=== PATIENT | male | born 1970 | race Caucasian/White ===

== ENCOUNTER 2019-06-16 14:50 | Inpatient (IN) ==
[2019-06-16] MEDS ORDERED: ASPIRIN PO ONE (15:05)
[2019-06-16 15:32] LABS: BASO# 0.02 X1000 (0.0-0.2); BASO% 0.2 % (0.0-0.8); EOS# 0.28 X1000 (0.0-0.7); HEMATOCRIT 45.4 % (42.0-52.0); HEMOGLOBIN 14.7 g/dL (14.0-18.0); IMM GRAN# 0.02 X1000 (0.0-0.04); IMM GRAN% 0.2 % (0.0-0.5); LYMPH# 1.61 X1000 (1.2-3.4); LYMPH% 17.2 % (20.5-51.1); MCH 27.8 PG (27-31); MCHC 32.4 g/dL (33-37); MONO# 0.76 X1000 (0.11-0.59); MONO% 8.1 % (1.7-9.3); MPV 9.6 FL (7.4-10.4); NEUT# 6.69 X1000 (1.4-6.5); NEUT% 71.3 % (42.2-75.2); PLT 185 X1000 (130-400); RBC 5.28 XMIL (4.7-6.1); RDW 15.2 % (11.5-14.5); WBC 9.38 X1000 (4.8-10.8)
--- NOTE | 2019-06-16 15:44 | Diag Imaging Result Doc PS360 ---
CHEST-2 VIEWS - 06/16/2019 INDICATION: chest pain COMPARISON: 08/08/2016 FINDINGS: The lungs are normally expanded and clear. Heart size and mediastinal contours are normal. No pneumothorax or pleural effusion. Stable calcified granulomas in the left lower lobe and left hilum. Stable advanced degenerative osteophytes throughout the thoracic spine. IMPRESSION: Negative exam. Electronically signed by Zoran Vicente 06/16/2019 3:42 PM
[2019-06-16 15:56] LABS: AGAP 11; ALBUMIN 4.1 g/dL (3.5-5.0); ALKALINE PHOSPHATASE 76 U/L (32-122); BUN 15 mg/dL (8-22); CHLORIDE 96 mmol/L (98-107); CK PROFILE 114 U/L (24-204); COSMO 277; ESTIMATED GFR > 60; GLUCOSE 78 mg/dL (70-104); GOT 16 U/L (10-34); GPT 13 U/L (10-44); LIPASE 11 U/L (13-60); POTASSIUM 4.1 mmol/L (3.5-5.1); SODIUM 139 mmol/L (136-145); TCO2 32 mmol/L (25-35); TOTAL PROTEIN 7.1 g/dL (6.3-8.3)
--- NOTE | 2019-06-16 17:13 | EKG Report ---
Test Performed on : 06/16/2019 2:48:32 PM Test Reason : ER Blood Pressure : / mmHG Vent. Rate : 067 BPM Atrial Rate : 067 BPM P-R Int : 188 ms QRS Dur : 116 ms QT Int : 432 ms P-R-T Axes : 053 070 047 degrees QTc Int : 456 ms Normal sinus rhythm. Normal ECG When compared with ECG of 29-JUL-2012 14:19, Previous ECG has undetermined rhythm, needs review Unconfirmed Result
[2019-06-16] MEDS ORDERED: ZOFRAN IV PRN (17:45)
[2019-06-16] MEDS ORDERED: TYLENOL PO PRN (17:45)
[2019-06-16 18:29] LABS: BE 6.3 mmoll (-3.0-3.0); BLOOD TYPE ARTERIAL; HCO3-(ACT) 29.6 mmoll (20.0-26.0); METHB 1.1 % (0.0-1.5); O2(CT) 19.2 mL/dL (15.0-23.0); O2HB 90.6 % (95.0-99.0); PO2(98.6) 65 mmHg (60-100); SAMPLE BLOOD; SAO2 95.1 % (95.0-100.0); THB 15.1 g/dL (11.5-17.4); pH(98.6) 7.35 (7.35-7.45)
[2019-06-16 18:32] LABS: ALLEN TEST YES; MODALITY ROOM AIR; PCO2(98.6) 62 mmHg (35-45)
[2019-06-16] MEDS ORDERED: MORPHINE IV PRN (18:40)
[2019-06-16] MEDS ORDERED: NITROGLYCERIN SL PRN (18:40)
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
--- NOTE | 2019-06-17 06:29 | EKG Report ---
Test Performed on : 06/17/2019 06:14:01 AM Test Reason : cp Blood Pressure : / mmHG Vent. Rate : 064 BPM Atrial Rate : 064 BPM P-R Int : 174 ms QRS Dur : 118 ms QT Int : 444 ms P-R-T Axes : 013 060 046 degrees QTc Int : 458 ms Normal sinus rhythm. Incomplete right bundle branch block Borderline ECG When compared with ECG of 16-JUN-2019 14:48, (Unconfirmed) No significant change was found Confirmed by Tadeo Gee MD ([id number]) on 06/19/2019 7:34:10 AM
[2019-06-17 07:21] LABS: BASO# 0.02 X1000 (0.0-0.2); BASO% 0.2 % (0.0-0.8); EOS# 0.39 X1000 (0.0-0.7); EOS% 4.6 % (0.0-10.0); HEMATOCRIT 45.9 % (42.0-52.0); HEMOGLOBIN 14.4 g/dL (14.0-18.0); IMM GRAN# 0.01 X1000 (0.0-0.04); IMM GRAN% 0.1 % (0.0-0.5); LYMPH# 1.61 X1000 (1.2-3.4); LYMPH% 19.1 % (20.5-51.1); MCH 27.9 PG (27-31); MCHC 31.4 g/dL (33-37); MCV 88.8 FL (81-99); MONO# 0.69 X1000 (0.11-0.59); MONO% 8.2 % (1.7-9.3); MPV 10.2 FL (7.4-10.4); NEUT# 5.72 X1000 (1.4-6.5); NEUT% 67.8 % (42.2-75.2); PLT 190 X1000 (130-400); RBC 5.17 XMIL (4.7-6.1); RDW 15.5 % (11.5-14.5); WBC 8.44 X1000 (4.8-10.8)
[2019-06-17 07:52] LABS: AGAP 6; ALBUMIN 3.4 g/dL (3.5-5.0); ALKALINE PHOSPHATASE 70 U/L (32-122); BUN 17 mg/dL (8-22); CALCIUM 8.5 mg/dL (8.8-10.2); CHLORIDE 99 mmol/L (98-107); COSMO 277; CREATININE 0.7 mg/dL (0.7-1.2); ESTIMATED GFR > 60; GLUCOSE 94 mg/dL (70-104); GOT 14 U/L (10-34); GPT 11 U/L (10-44); POTASSIUM 4.6 mmol/L (3.5-5.1); SODIUM 138 mmol/L (136-145); TCO2 33 mmol/L (25-35); TOTAL PROTEIN 6.7 g/dL (6.3-8.3)
[2019-06-17 07:57] LABS: CHOLESTEROL 138 mg/dL (0-200); HDL 44 mg/dL (35-55); LDL 52 mg/dL; TRIGLYCERIDES 212 mg/dL (39-160); VLDL 42 mg/dL
[2019-06-17] MEDS ORDERED: ASPIRIN EC PO SCH (09:00)
--- NOTE | 2019-06-17 17:16 | CARDIOLOGY CONSULTATION ---
DATE: 06/17/2019 CHIEF COMPLAINT: Chest pain. HISTORY OF PRESENT ILLNESS: Mr. Scherer is a 49-year-old male with a history of hypertension, tobacco use, who presents for around 1 to 2 weeks of a pressure-like discomfort in his chest. At times, it will radiate up to the left shoulder as well as the neck; however, at times, he seems to have these pains without the chest pain. The pain is occasionally exertional. He is a difficult historian. It seems to at times gets better with aspirin. He denies any overt diaphoresis. He at times has smoked quite heavily, up to 2 packs per day. PAST MEDICAL HISTORY: Significant for hypertension. SOCIAL HISTORY: He smokes around 2 packs a day. 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 FAMILY HISTORY: Coronary disease. REVIEW OF SYSTEMS: A 10 system review of systems is negative except for those things mentioned in the HPI. PHYSICAL EXAMINATION: Afebrile. Heart rate 67, blood pressure 141/92. Generally, he is in no acute distress.HEENT: Oropharynx is moist with normal dentition. Eye examination shows pink conjunctivae and white sclerae. His neck examination shows no obvious thyromegaly or thyroid tenderness. Cardiovascularly, he is in a regular rate and rhythm. He has no obvious murmurs. He has distant heart sounds. No lower extremity edema. His chest exam sounds clear bilaterally. He has no increased work of breathing. His abdomen is soft, nontender, nondistended. No obvious organomegaly. Skin exam is warm and dry throughout without any rashes. Neurologically, he is moving all extremities well. He has no lateralizing deficits. PERTINENT DATA: His EKG yesterday at 1448 shows sinus rhythm, no signs of ischemic changes. His subsequent EKG occurring on the at 6:14 shows sinus rhythm, no signs of ischemic changes. He had a chest x-ray that shows no obvious abnormalities. His lab data demonstrates a white count 8.4, hematocrit 45, platelet count 190,000. His sodium is 138, potassium 4.6 BUN 17, creatinine 0.7. His LDL was 52, HDL 44. He has had negative cardiac enzymes. ASSESSMENT: Mr. Scherer is a 49-year-old gentleman who presents with exertional chest discomfort with risk factors. PLAN: Patient is quite obese with a BMI of around 70; he weighs 397 pounds and is 5 feet 3 inches. He does not seem a feasible candidate for any sort of noninvasive testing. We will try to proceed with a cardiac catheterization in the morning for a full delineation of his coronary arteries. Risks, benefits and alternatives to the procedure have been discussed with the patient and he agrees to proceed. cc: MD Rodney Johnson MD MTDD
--- NOTE | 2019-06-17 18:44 | PROGRESS NOTE ---
DATE: 06/17/2019 SUBJECTIVE: Patient has no complaints. He is chest pain-free at this point. OBJECTIVE: Vital signs: Blood pressure is 141/92, heart rate 67, respiratory rate 22, temperature 98.4 degrees. Cardiovascular: Regular rate and rhythm. Pulmonary: Bilateral breath sounds. Clear auscultation. GI: Soft, nontender, nondistended. Bowel sounds are positive. LABORATORY DATA: White count is 8, hemoglobin and hematocrit 14 and 45. Troponins have been negative. His triglycerides are mildly elevated at 212. PROBLEM LIST: 1. Chest pain, which is somewhat atypical, but there is a concern over possible unstable angina due to his weight. Noninvasive imaging may not be completely available. So, we will perform a cardiac catheterization per Dr. Lauri Manrique's recommendations. Hopefully, they are arranging to transfer him to [facility] to get that evaluated. 2. Atypical chest pain. I am going to analyze the right upper quadrant just because of his obesity. 3. Hypertriglyceridemia. We will also start him on Tricor for and follow closely. cc: Rodney Waldrop MD
[2019-06-17] MEDS ORDERED: NITROGLYCERIN SL PRN (20:16)
[2019-06-17] MEDS ORDERED: TYLENOL PO PRN (20:18)
[2019-06-17] MEDS ORDERED: ZOFRAN IV PRN (20:19)
--- NOTE | 2019-06-17 22:54 | ECHO REPORT ---
ORDER DATE: 06/17/2019 MEASUREMENTS: Septal thickness 1.0, left ventricular internal diameter diastole 5.7, posterior wall thickness 1.0, aortic root 3.8, left atrium 3.8 SUMMARY: 1. Technically difficult study due to limited acoustic window quality. 2. Aortic valve is without evidence of structural abnormality and appears to open adequately on 2- dimensional images. Peak gradient across aortic valve is 10 to 15 mmHg. Mitral and tricuspid valves are without evidence of structural abnormality. While pulmonic valves all demonstrated. There is trace tricuspid regurgitation. The aortic root is borderline enlarged. 3. Normal left ventricular dimensions suggested. Estimated left ejection fraction appears to be at least 60%. No obvious wall motion abnormality can be appreciated. Left atrium is normal in size. The right ventricle appears mild to moderately enlarged with reduced right ventricular systolic function. Mild right atrial enlargement also demonstrated. 4. No pericardial effusion. 5. Appearance of inferior vena cava suggests borderline elevated central venous pressure. CONCLUSION: 1. Technically difficult study. 2. No significant valvular abnormality appreciated. 3. Normal left ventricular systolic function demonstrated without obvious wall motion abnormality. 4. Right-sided cardiac chamber enlargement with reduced right ventricular systolic function suggested. cc: MD Rodney Newton MD
[2019-06-18] MEDS ORDERED: NS 1,000 ML IV ONE
[2019-06-18 05:38] LABS: INR 0.84; PROTIME 12.2 Seconds (11.0-16.0)
[2019-06-18 05:49] LABS: BASO# 0.02 X1000 (0.0-0.2); BASO% 0.2 % (0.0-0.8); EOS# 0.37 X1000 (0.0-0.7); EOS% 4.6 % (0.0-10.0); HEMATOCRIT 45.7 % (42.0-52.0); HEMOGLOBIN 14.8 g/dL (14.0-18.0); IMM GRAN# 0.02 X1000 (0.0-0.04); IMM GRAN% 0.2 % (0.0-0.5); LYMPH# 1.75 X1000 (1.2-3.4); LYMPH% 21.8 % (20.5-51.1); MCH 28.6 PG (27-31); MCHC 32.4 g/dL (33-37); MCV 88.2 FL (81-99); MONO# 0.68 X1000 (0.11-0.59); MONO% 8.5 % (1.7-9.3); NEUT# 5.18 X1000 (1.4-6.5); NEUT% 64.7 % (42.2-75.2); PLT 122 X1000 (130-400); RBC 5.18 XMIL (4.7-6.1); RDW 15.5 % (11.5-14.5); WBC 8.02 X1000 (4.8-10.8)
[2019-06-18 05:53] LABS: AGAP 8; BUN 18 mg/dL (8-22); CALCIUM 8.5 mg/dL (8.8-10.2); CHLORIDE 99 mmol/L (98-107); COSMO 278; CREATININE 0.8 mg/dL (0.7-1.2); ESTIMATED GFR > 60; GLUCOSE 98 mg/dL (70-104); POTASSIUM 4.3 mmol/L (3.5-5.1); SODIUM 138 mmol/L (136-145); TCO2 31 mmol/L (25-35)
--- NOTE | 2019-06-18 07:17 | EKG Report ---
Test Performed on : 06/18/2019 07:02:40 AM Test Reason : chest pain Blood Pressure : / mmHG Vent. Rate : 078 BPM Atrial Rate : 078 BPM P-R Int : 226 ms QRS Dur : 116 ms QT Int : 428 ms P-R-T Axes : 063 079 043 degrees QTc Int : 487 ms Sinus rhythm. with 1st degree AV block. Incomplete right bundle branch block Possible Anterior infarct , age undetermined Abnormal ECG When compared with ECG of 17-JUN-2019 06:14, (Unconfirmed) [place] interval has increased Unconfirmed Result
--- NOTE | 2019-06-18 08:46 | Diag Imaging Result Doc PS360 ---
EXAM: US GB < RUQ (LIMITED) INDICATION: elevated liver enzymes COMPARISON: None. FINDINGS: The gallbladder appears normal with no stones, wall thickening, or pericholecystic fluid. The common bile duct is normal in diameter. Sonographic Brasher's sign was reported to be negative. The liver is grossly unremarkable. Portal venous flow is hepatopetal. The pancreas is largely obscured by bowel gas. The aorta is also obscured. The IVC is grossly unremarkable. The right kidney is grossly unremarkable. IMPRESSION: Essentially unremarkable right upper quadrant abdominal ultrasound. Electronically signed by Sha Jorge 06/18/2019 8:45 AM
[2019-06-18] MEDS ORDERED: ASPIRIN PO SCH (09:00)
[2019-06-18] MEDS ORDERED: TRICOR PO SCH ×2 (09:00)
[2019-06-18] MEDS ORDERED: SUBOXONE 8 MG/2 MG SL SCH (09:00)
[2019-06-18] MEDS ORDERED: HYDROCHLOROTHIAZIDE PO SCH (09:00)
[2019-06-18] MEDS ORDERED: ASPIRIN EC PO SCH (09:00)
[2019-06-18] MEDS ORDERED: HEPARIN 1000 UNITS/NS 2,000 UNIT/1,000 ML IV.SOLN ONE (11:55)
[2019-06-18] MEDS ORDERED: CLAVE TWINSITE 32 IN 11959 ONE (12:23)
[2019-06-18] MEDS ORDERED: DILAUDID ONE ×2 (12:29→12:57)
[2019-06-18] MEDS ORDERED: VERSED ONE (12:29)
--- NOTE | 2019-06-18 13:42 | CARDIAC CATH REPORT ---
PROCEDURE NAME: - INDICATION: Patient with chest pain concerning for possible unstable angina. PROCEDURES PERFORMED: 1. Left heart catheterization. 2. Selective coronary angiography. 3. Left ventriculogram. PROCEDURE IN DETAIL: Mr. Scherer is brought to the catheterization laboratory in a fasting state. Informed consent was obtained. Prepped in usual fashion. He was anesthetized over the right radial artery after Demian's test proved adequate. A 5-Romansh sheath was placed via true Seldinger technique. Radial cocktail was administered. Catheters were introduced and hemodynamic measurements made in the ascending thoracic aorta. Coronary angiography was performed in multiple views using JL3.5 and JR4 diagnostic catheters. Left heart catheterization was performed, and left ventriculogram was performed using the JR4. At the conclusion of the procedure, all sheaths and catheters were removed. TR band was left inflated at 12 mL of air. Good capillary refill. Good hemostasis. No apparent complications. Total of 65 mL of IV contrast and 5-10 mL of blood loss. FINDINGS: 1. The left main appears normal and originates from the left coronary cusp. 2. Left anterior descending and circumflex vessels are large and originate from the left main. There are no flow-limiting lesions. 3. The right coronary appears angiographically normal and originates from the right coronary cusp. He experienced some radial artery spasm during the course of injection of the right coronary, and we had difficulty manipulating the catheter for the second shot, but again appeared angiographically normal during his initial shots. 4. The left ventriculogram was complicated by ectopy, but ejection fraction was 55%. No obvious wall motion abnormalities. 5. Aortic blood pressure 166/96 with a mean of 126. Left ventricular pressure 155/14 with an LVEDP of 22. ASSESSMENT: Mr. Scherer is a 49-year-old gentleman who presents with complaints of chest discomfort, some with exertion. PLAN: He has an elevated LVEDP with normal coronaries. At this point, I would recommend changing his diuretic to Lasix 20 mg daily. I would recommend the patient proceeding with a sleep study as well as an outpatient. From my standpoint, he can be discharged home after the usual postprocedure convalescence. cc: MD Obie Johnson MD
--- NOTE | 2019-06-18 15:13 | DISCHARGE SUMMARY ---
ADMISSION DATE: 06/16/2019 DISCHARGE DATE: 06/18/2019 DISCHARGE DIAGNOSES: 1. Hypertension. 2. Possible obesity hypoventilation syndrome. Sleep study is recommended. 3. No coronary artery disease. CONSULTATIONS: Dr. Lauri Manrique from Cardiology. PROCEDURES: Chest x-ray done on admission was negative. Echocardiogram: Technically difficult exam. No significant valvular abnormality appreciated. Normal left ventricular systolic function without obvious wall motion abnormality. Right-sided cardiac chamber enlargement with reduced right ventricular systolic function suggested. Cardiac catheterization show elevated LVEDP with arteries grossly normal. Abdominal ultrasound showed essentially unremarkable right upper quadrant abdominal ultrasound. HOSPITAL COURSE: In brief, this is a 49-year-old morbidly obese male who presented to the emergency department complaining of several weeks of chest pain on and off so that is why he was admitted. He had echocardiogram and abdominal ultrasound as above. To help with better visualization of the heart, we decided to do a Lexiscan but because that was technically difficult, education assistant decided to do a left heart catheterization with results as above. Patient is doing fine. I think he may have some sleep apnea so he is being referred to Dr. Mcmullen from Pulmonary to have a sleep study done. We are going to make a change in his treatment to start Lasix and stop hydrochlorothiazide. I think this patient can be discharged home in stable condition. DISCHARGE PHYSICAL EXAMINATION: Vitals: Temperature 97.8 degrees, heart rate 56, respiratory rate 20, blood pressure 142/67, O2 saturation 98% on room air. General Examination: This is a morbidly obese 49-year-old male, lying in bed, in no acute distress. Cardiovascular Exam: S1, S2 heard. No murmurs, gallops, or rubs. Regular rate and rhythm. Respiratory Exam: Clear bilaterally to auscultation. No work of breathing or using accessory muscles. Abdomen: Soft, nontender to palpation. Bowel sounds present. No organomegaly. Extremities: No clubbing, cyanosis, or edema. Peripheral pulses present in both legs. Neurological Exam: The patient alert, oriented x3. Moves 4 extremities. DISCHARGE DISPOSITION: Home to self-care. FOLLOW-UP: Follow up with Dr. Mcmullen in a week or 2. DISCHARGE MEDICATIONS: 1. Tricor 40 mg 1 tablet p.o. daily. 2. Furosemide 20 mg 1 tablet p.o. daily. 3. Aspirin 1 tablet p.o. daily. 4. Suboxone 1 tablet p.o. b.i.d. COORDINATION TIME: Time discharging this patient is 33 minutes. cc: Obie Hoffman MD
[2019-06-18 15:46] VITALS: BP 152/80
[2019-06-19] MEDS ORDERED: LASIX PO SCH (09:00)
== END 2019-06-18 16:30 | disposition home or self-care (01) | DRG 287 ==
LOC: P.ED 14:50 → P.MEDSURG 14:50 → OBSVTOIN 17:17 → SUATTDRO 17:17 → 3S 06-17 20:12
PROVIDERS: ADMIT Internal Medicine; ATTEND Internal Medicine
CPT/HCPCS: 71020; 71046; 76705; 80048; 80053; 80061; 82550; 82805; 83690; 83735; 84484; 85025; 85610; 93005; 93010; 93306; 93458; A9270; C8929; J1170; J1644; J2250; J7030; Q9957; Q9967

== ENCOUNTER 2019-09-05 23:30 | Inpatient (IN) ==
[2019-09-06] MEDS ORDERED: TYLENOL PO PRN (02:04)
[2019-09-06] MEDS ORDERED: ZOFRAN IV PRN (02:04)
[2019-09-06 02:27] LABS: BASO# 0.03 X1000 (0.0-0.2); BASO% 0.3 % (0.0-0.8); EOS# 0.36 X1000 (0.0-0.7); EOS% 3.3 % (0.0-10.0); HEMATOCRIT 42.7 % (42.0-52.0); HEMOGLOBIN 13.7 g/dL (14.0-18.0); IMM GRAN# 0.03 X1000 (0.0-0.04); IMM GRAN% 0.3 % (0.0-0.5); LYMPH# 1.91 X1000 (1.2-3.4); LYMPH% 17.5 % (20.5-51.1); MCHC 32.1 g/dL (33-37); MCV 90.5 FL (81-99); MONO% 7.3 % (1.7-9.3); MPV 9.5 FL (7.4-10.4); NEUT# 7.79 X1000 (1.4-6.5); NEUT% 71.3 % (42.2-75.2); PLT 205 X1000 (130-400); RBC 4.72 XMIL (4.7-6.1); RDW 14.1 % (11.5-14.5); WBC 10.92 X1000 (4.8-10.8)
[2019-09-06 02:33] LABS: INR 0.96; PROTIME 12.9 Seconds (11.0-16.0)
[2019-09-06 02:52] LABS: AGAP 10; ALB/GLOB RATIO 1.2; ALBUMIN 3.8 g/dL (3.5-5.0); ALKALINE PHOSPHATASE 65 U/L (32-122); BUN 23 mg/dL (8-22); CALCIUM 8.6 mg/dL (8.8-10.2); CHLORIDE 100 mmol/L (98-107); CK PROFILE 71 U/L (24-204); COSMO 285; CREATININE 0.7 mg/dL (0.7-1.2); ESTIMATED GFR > 60; GLUCOSE 96 mg/dL (70-104); GOT 13 U/L (10-34); GPT 11 U/L (10-44); MAGNESIUM 1.9 mg/dL (1.5-2.7); POTASSIUM 4.1 mmol/L (3.5-5.1); SODIUM 141 mmol/L (136-145); TCO2 31 mmol/L (25-35); TOTAL BILIRUBIN 0.17 mg/dL (0.20-1.00); TOTAL PROTEIN 6.9 g/dL (6.3-8.3)
[2019-09-06 04:37] LABS: UR AMPHETAMINES QUAL NONE DETECTED (NONE DETECT); UR BARBITUATES QUAL NONE DETECTED (NONE DETECT); UR BENZODIAZEPIN QUAL NONE DETECTED (NONE DETECT); UR CANNABINOIDS QUAL NONE DETECTED (NONE DETECT); UR COCAINE QUAL NONE DETECTED (NONE DETECT); UR METHADONE QUAL NONE DETECTED (NONE DETECT); UR OPIATES QUAL NONE DETECTED (NONE DETECT); UR OXYCODONE QUAL NONE DETECTED (NONE DETECT); UR PCP QUAL NONE DETECTED (NONE DETECT)
--- NOTE | 2019-09-06 05:24 | EKG Report ---
Test Performed on : 09/06/2019 04:49:55 AM Test Reason : chest pain Blood Pressure : / mmHG Vent. Rate : 061 BPM Atrial Rate : 061 BPM P-R Int : 182 ms QRS Dur : 114 ms QT Int : 464 ms P-R-T Axes : 020 065 042 degrees QTc Int : 467 ms Normal sinus rhythm. Normal ECG No previous ECGs available Confirmed by Jeffy CHILEL, Jamin Rahman ([id number]) on 09/06/2019 9:01:08 AM
[2019-09-06] MEDS ORDERED: NICODERM PATCH TD PRN (06:24)
[2019-09-06] MEDS ORDERED: DUONEB (A & A) INH PRN (06:35)
--- NOTE | 2019-09-06 07:03 | HISTORY AND PHYSICAL ---
ADDENDUM: Patient seen and examined by myself. Full note dictated and discussed with nurse practitioner. Patient presented to [facility] initially and was noted to be in ventricular tachycardia. He apparently was just in [facility] and had an extensive cardiac workup in June to include a heart catheterization which was normal. He was to follow up with Dr. Mcmullen in 2 weeks for a sleep study. The patient, unfortunately, is morbidly obese at 412 pounds. He presented to the hospital noting that his heart has been racing off and on. He states it usually goes away. When he was placed on telemetry at [facility], it is reported that he was in ventricular tachycardia. It converted on its own. We are going to admit him to the hospital and ask cardiology to re-evaluate. Certainly, patient needs to be evaluated for sleep apnea if he has not already done so. cc: Dallin Pinto MD
[2019-09-06] MEDS ORDERED: SUBOXONE 8 MG/2 MG FILM SL SCH (09:00)
[2019-09-06] MEDS ORDERED: ASPIRIN PO SCH (09:00)
[2019-09-06] MEDS: ASPIRIN PO SCH (09:44)
[2019-09-06] MEDS: LASIX PO SCH (09:44)
[2019-09-06] MEDS: TRICOR PO SCH (09:44)
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
[2019-09-06 11:28] LABS: ALLEN TEST YES; BE 9.1 mmoll (-3.0-3.0); BLOOD TYPE ARTERIAL; HCO3-(ACT) 31.9 mmoll (20.0-26.0); METHB 1.3 % (0.0-1.5); O2(CT) 18.3 mL/dL (15.0-23.0); O2HB 92.1 % (95.0-99.0); PO2(98.6) 75 mmHg (60-100); SAMPLE BLOOD; SAO2 97.3 % (95.0-100.0); THB 14.1 g/dL (11.5-17.4); pH(98.6) 7.34 (7.35-7.45)
[2019-09-06 11:32] LABS: MODALITY CANNULA; PCO2(98.6) 70 mmHg (35-45)
[2019-09-06] MEDS ORDERED: NS NEB INH SCH (12:00)
--- NOTE | 2019-09-06 13:43 | Diag Imaging Result Doc PS360 ---
CHEST-1 VIEW - 09/06/2019 INDICATION: dyspnea COMPARISON: 06/16/2019 FINDINGS: Stable calcified granuloma in the lateral left lung base. The lungs are clear. Heart size is normal. No pneumothorax or pleural effusion. IMPRESSION: Negative exam. Electronically signed by Zoran Vicente 09/06/2019 1:41 PM
[2019-09-06] MEDS: SOLU-MEDROL IV SCH ×2 (16:19→22:30)
[2019-09-06] MEDS ORDERED: ULTRAM PO PRN (16:38)
[2019-09-06] MEDS: XOPENEX NEB INH SCH ×2 (16:42→21:44)
[2019-09-06] MEDS: ATROVENT NEB INH SCH ×2 (16:42→21:44)
[2019-09-06] MEDS: FLEXERIL PO PRN (16:47)
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
--- NOTE | 2019-09-06 17:40 | PROGRESS NOTE ---
DATE: 09/06/2019 SUBJECTIVE: The patient complains of shortness of breath. He denies having any chest pain, headache or dizziness. OBJECTIVE: Vital Signs: Temperature 98.6 degrees, blood pressure 139/88, heart rate 71, respirations 20, O2 saturation is 93% on 2 L nasal cannula. General: This is a morbidly obese male, lying in bed in no acute distress. Heart: S1, S2 normal, regular rate and rhythm. Lungs: Diminished breath sounds bilaterally. Mild expiratory wheezes. Abdomen: Positive bowel sounds. Soft, obese, nontender, nondistended. Extremities: 1+ edema. Neurologic: The patient is alert and oriented x4. DIAGNOSTIC STUDIES: White blood cell count 10, hemoglobin 13, hematocrit 42, platelets 205,000. ABG: PH 7.34, pCO2 of 70. BUN 23, creatinine 0.7, glucose 96. Magnesium 1.9. Chest x-ray shows negative exam. ASSESSMENT AND PLAN: 1. Acute hypercapnic respiratory failure. The patient has COPD and obstructive sleep apnea. 2. Chronic obstructive pulmonary disease exacerbation. Pulmonology has been consulted. The patient is on steroids, bronchodilator therapy, and supplemental oxygen. The patient will be utilizing BiPAP at night. 3. Morbid obesity. The patient has been counseled about weight loss and proper diet. 4. Suspected obstructive sleep apnea. The patient will likely need a sleep study as outpatient. 5. Tobacco dependence. The patient has been counseled about smoking cessation. 6. Gastrointestinal prophylaxis. We will start the patient on omeprazole. 7. Deep vein thrombosis prophylaxis. Continue on Lovenox. cc: MD Dallin Ventura MD MTDD
[2019-09-07] MEDS: XOPENEX NEB INH SCH ×4 (03:09→21:30)
[2019-09-07] MEDS: ATROVENT NEB INH SCH ×4 (03:09→21:30)
[2019-09-07 04:18] LABS: ALLEN TEST YES; BE 4.9 mmoll (-3.0-3.0); BLOOD TYPE ARTERIAL; HCO3-(ACT) 28.6 mmoll (20.0-26.0); METHB 0.9 % (0.0-1.5); O2(CT) 20.1 mL/dL (15.0-23.0); O2HB 91.6 % (95.0-99.0); PO2(98.6) 65 mmHg (60-100); SAMPLE BLOOD; THB 15.6 g/dL (11.5-17.4); pH(98.6) 7.33 (7.35-7.45)
[2019-09-07 04:19] LABS: MODALITY CANNULA
[2019-09-07 04:20] LABS: PCO2(98.6) 63 mmHg (35-45)
[2019-09-07 06:14] LABS: HEMATOCRIT 44.6 % (42.0-52.0); HEMOGLOBIN 14.6 g/dL (14.0-18.0); IMM GRAN# 0.03 X1000 (0.0-0.04); IMM GRAN% 0.2 % (0.0-0.5); LYMPH# 0.71 X1000 (1.2-3.4); LYMPH% 5.9 % (20.5-51.1); MCH 29.1 PG (27-31); MCHC 32.7 g/dL (33-37); MCV 88.8 FL (81-99); MONO# 0.09 X1000 (0.11-0.59); MONO% 0.7 % (1.7-9.3); MPV 9.8 FL (7.4-10.4); NEUT# 11.29 X1000 (1.4-6.5); NEUT% 93.2 % (42.2-75.2); PLT 198 X1000 (130-400); RBC 5.02 XMIL (4.7-6.1); RDW 13.9 % (11.5-14.5); WBC 12.12 X1000 (4.8-10.8)
[2019-09-07] MEDS: SOLU-MEDROL IV SCH ×3 (06:18→22:47)
[2019-09-07] MEDS: PRILOSEC PO SCH (06:19)
[2019-09-07] MEDS: LOVENOX SUBQ SCH (06:19)
[2019-09-07 06:36] LABS: LYMPHS 4 % (21-51); SEGS 96 % (42-75)
[2019-09-07 06:47] LABS: AGAP 9; BUN 15 mg/dL (8-22); CHLORIDE 96 mmol/L (98-107); COSMO 277; CREATININE 0.7 mg/dL (0.7-1.2); ESTIMATED GFR > 60; GLUCOSE 169 mg/dL (70-104); SODIUM 136 mmol/L (136-145); TCO2 31 mmol/L (25-35)
[2019-09-07] MEDS: ASPIRIN PO SCH (08:09)
[2019-09-07] MEDS: LASIX PO SCH (08:09)
[2019-09-07] MEDS: TRICOR PO SCH (08:09)
[2019-09-07] MEDS: SUBOXONE 8 MG/2 MG SL SCH ×2 (08:17→16:38)
--- NOTE | 2019-09-07 08:30 | CARDIOLOGY PROGRESS NOTE ---
DATE: 09/07/2019 CHIEF COMPLAINT: Ventricular tachycardia, shortness of breath. SUBJECTIVE: Mr. Scherer has not experienced any further bouts of palpitations or tachycardia or syncope. Telemetry is unremarkable. He denies having chest pain. OBJECTIVE: Blood pressure is 175/86, temperature 98.2, pulse 68, respirations 13. He is awake, alert, oriented, no distress. HEENT is unremarkable. Chest: Diminished breath sounds at the bases. Heart sounds are regular and rhythmic. I do not hear any gallop or murmur. Abdomen is obese, nontender. Extremities showed no obvious edema. Neurologic: Follows commands, moves all 4 extremities. DIAGNOSTIC DATA: D-dimer was checked, and it was negative. Blood gases initially showed pH of 7.34, pCO2 is 70, pO2 is 35. Sodium is 141, potassium 4.1, BUN is 23, creatinine 0.7. Troponins were checked 3 times, and they are all negative. ProBNP is minimally elevated at 271 picograms per mL. IMPRESSION: 1. The patient presented with ventricular tachycardia. This is nonsustained and probably related to right ventricular enlargement. He probably has some degree of right ventricular heart failure. 2. Morbid obesity. 3. Chronic obstructive pulmonary disease with hypercarbic respiratory failure which is chronic. 4. Suspected sleep apnea syndrome. 5. Tobacco user. 6. Hypertension. 7. Hyperlipidemia. RECOMMENDATIONS: At this time, I will probably pursue aggressive management of his underlying pulmonary condition as well as his body weight. We will try to make a referral to Bariatric Surgery. Cardiac montes, I do not think we need to do any specific intervention. We will observe him one more day on telemetry, and if he is doing fine and everything else looks okay, he can be discharged. cc: MD Dallin Chen MD
[2019-09-07 10:47] LABS: HEMOGLOBIN A1C 5.1 % (4.8-6.0)
--- NOTE | 2019-09-07 15:35 | PROGRESS NOTE ---
DATE: 09/07/2019 SUBJECTIVE: The patient is sitting up in bed. He states that he could not tolerate the BiPAP last night. OBJECTIVE: Vital Signs: Temperature 98.2 degrees, blood pressure 151/81, heart rate 97, respirations 18, and O2 saturation 92% on 2 L nasal cannula. General: This is a morbidly obese male lying in bed in no acute distress. Heart: S1, S2 normal. Lungs: Diminished breath sounds bilaterally. Abdomen: Positive bowel sounds. Soft, obese, and nontender. Extremities: No edema. No cyanosis. Neurologic: The patient is alert and oriented x4. LABORATORY: White blood cell count 12, hemoglobin 14, hematocrit 44, and platelets 198,000. ABG pH of 7.33, pCO2 of 63, PO2 65, and bicarb 28. Sodium 136, potassium 4, chloride 96, CO2 31, BUN 15, creatinine 0.7 and glucose 169. ASSESSMENT AND PLAN: 1. Acute hypercapnic respiratory failure. Continue with BiPAP at night. 2. Chronic obstructive pulmonary disease exacerbation. Continue on IV steroids, bronchodilator therapy and supplemental oxygen. Continue with BiPAP therapy at night. 3. Morbid obesity. The patient has been counseled about weight loss and proper diet. 4. Suspected obstructive sleep apnea. The patient will need a sleep study as outpatient. 5. Leukocytosis. This is likely steroid induced. 6. Hyperglycemia. We will check a hemoglobin A1c. The patient is also on steroid therapy. 7. Gastrointestinal prophylaxis. Continue on Prilosec. 8. Deep vein thrombosis prophylaxis. Continue on Lovenox. cc: Peyton Boykin MD
[2019-09-07] MEDS: FLEXERIL PO PRN (22:47)
[2019-09-08] MEDS: XOPENEX NEB INH SCH ×3 (04:40→15:16)
[2019-09-08] MEDS: ATROVENT NEB INH SCH ×3 (04:40→15:16)
[2019-09-08 04:48] LABS: ALLEN TEST YES; BE 6.5 mmoll (-3.0-3.0); BLOOD TYPE ARTERIAL; HCO3-(ACT) 29.9 mmoll (20.0-26.0); METHB 1.5 % (0.0-1.5); O2(CT) 18.6 mL/dL (15.0-23.0); O2HB 95.3 % (95.0-99.0); PO2(98.6) 97 mmHg (60-100); SAMPLE BLOOD; SAO2 98.8 % (95.0-100.0); THB 13.8 g/dL (11.5-17.4); pH(98.6) 7.34 (7.35-7.45)
[2019-09-08 04:51] LABS: MODALITY CANNULA; PCO2(98.6) 64 mmHg (35-45)
[2019-09-08] MEDS: SOLU-MEDROL IV SCH (06:07)
[2019-09-08] MEDS: PRILOSEC PO SCH (06:07)
[2019-09-08] MEDS: LOVENOX SUBQ SCH (06:08)
[2019-09-08 07:06] LABS: HEMATOCRIT 43.9 % (42.0-52.0); IMM GRAN# 0.06 X1000 (0.0-0.04); IMM GRAN% 0.3 % (0.0-0.5); LYMPH# 0.83 X1000 (1.2-3.4); LYMPH% 4.4 % (20.5-51.1); MCH 28.7 PG (27-31); MCHC 31.9 g/dL (33-37); MCV 90.1 FL (81-99); MONO# 0.73 X1000 (0.11-0.59); MONO% 3.8 % (1.7-9.3); MPV 10.3 FL (7.4-10.4); NEUT% 91.5 % (42.2-75.2); PLT 199 X1000 (130-400); RBC 4.87 XMIL (4.7-6.1); RDW 14.4 % (11.5-14.5); WBC 19.02 X1000 (4.8-10.8)
[2019-09-08 07:18] LABS: AGAP 9; BUN 21 mg/dL (8-22); CALCIUM 9.1 mg/dL (8.8-10.2); CHLORIDE 98 mmol/L (98-107); COSMO 282; CREATININE 0.7 mg/dL (0.7-1.2); ESTIMATED GFR > 60; GLUCOSE 119 mg/dL (70-104); POTASSIUM 4.8 mmol/L (3.5-5.1); SODIUM 139 mmol/L (136-145); TCO2 32 mmol/L (25-35)
--- NOTE | 2019-09-08 08:11 | CARDIOLOGY PROGRESS NOTE ---
DATE: 09/08/2019 CHIEF COMPLAINT: Ventricular tachycardia, dyspnea. SUBJECTIVE: Mr. Scherer is generally doing better. He has tolerated CPAP mask or BiPAP system through the night. His breathing is more comfortable. His blood gases from this morning showed that his pCO2 is 64, pO2 is up to 97, pH is 7.34. Sodium 139, potassium 4.8, BUN 21, creatinine 0.7. His telemetry shows no ventricular tachycardia. OBJECTIVE: General: He is awake, alert, oriented, no distress. HEENT: Unremarkable. Chest: Clear to auscultation and percussion. Heart: Sounds are regular and rhythmic. Abdomen: Obese, nontender. Extremities: Showed no edema. Neurologic exam: Follows commands, moves all 4 extremities. Vital signs: Temperature 97.9, pulse 63, respirations 16, blood pressure 152/95. IMPRESSION: 1. Patient who presented with increasing dyspnea and evidence of chronic hypercarbic respiratory failure. 2. Ventricular tachycardia nonsustained, which is resolved. 3. Right ventricular dysfunction, chronic, with right-sided heart failure. 4. Sleep apnea syndrome. 5. Morbid obesity. 6. History of bilateral hip arthritis. 7. History of hypertension. RECOMMENDATIONS: At this time, the patient seems to be improving. There is no more ventricular tachycardia noted. He does not require any treatment at this time for that particular condition. My recommendations is for him to seek evaluation by a bariatric surgeon. I will be glad to make a referral for him. Cardiac-montes, he is stable and he could be discharged. We will make arrangements for a followup with our team at the office. cc: Jimenez Jalloh MD
[2019-09-08] MEDS ORDERED: SOLU-MEDROL IV SCH ×2 (08:30→21:00)
[2019-09-08] MEDS: TRICOR PO SCH (08:43)
[2019-09-08] MEDS: ASPIRIN PO SCH (08:43)
[2019-09-08] MEDS: LASIX PO SCH (08:43)
[2019-09-08] MEDS: SUBOXONE 8 MG/2 MG SL SCH (08:43)
[2019-09-08 15:21] VITALS: BP 186/94
--- NOTE | 2019-09-11 05:22 | DISCHARGE SUMMARY ---
ADMISSION DATE: 09/05/2019 DISCHARGE DATE: 09/08/2019 CONSULTANTS: Cardiology, Dr. Jalloh DISCHARGE DIAGNOSES: 1. Acute on likely chronic hypercapnic respiratory failure. 2. Chronic obstructive pulmonary disease exacerbation. 3. Morbid obesity and possible pickwickian syndrome. 4. Obstructive sleep apnea. 5. Leukocytosis. 6. Hyperglycemia. 7. Tobacco use. PERTINENT STUDIES: Chest x-ray with no acute process. Initial ABG with pH 7.34, pCO2 70, discharge pCO2 64, glucose 96 to 169, and hemoglobin A1c 5.1. Troponin negative. BNP 270. Urine drug screen negative. HOSPITAL COURSE: Patient with history of morbid obesity, chest pain, and dyspnea. Cardiac workup was unremarkable, but he was found to have acute on chronic hypercapnia likely related to COPD exacerbation and pickwickian syndrome. He had significant wheezing initially. He was treated with steroids and nebulizer treatments. The patient's oxygen was largely stable in his home on 2 L. The patient improved rapidly with steroids and DuoNeb. He was discharged home on a short course of oral steroid to follow up with his PCP. The patient's other chronic comorbidities were largely stable. He did have increased leukocytosis, but this was favored to be steroid induced as no bacterial infection was identified. Also, he had some hyperglycemia but normal A1c, which was also favored to be steroid induced. DISCHARGE VITAL SIGNS: Temperature 98.2 degrees, pulse 79, respirations 20, blood pressure 173/84, and O2 saturation 94% on 2 L by nasal cannula. DISCHARGE DIET: Regular. DISCHARGE MEDICATIONS: 1. Aspirin 325 daily. 2. Hydrochlorothiazide 25 mg p.o. daily. 3. Suboxone as previously prescribed. 4. Lasix 20 mg p.o. daily. 5. Medrol Dosepak as directed. 6. Nicotine patch 14 mg daily. 7. Albuterol inhaler q.4-6 hours p.r.n. 8. Fenofibrate 48 mg p.o. daily. FOLLOW UP: Patient discharging home with short course of oral steroids for COPD exacerbation. The patient to follow up with PCP. TIME SPENT: Greater than 30 minutes spent arranging discharge and counseling patient.
== END 2019-09-08 18:07 | disposition home health service (06) | DRG 308 ==
LOC: SUATTDRO 23:30 → 2N 23:30 → 3N 09-08 02:24
PROVIDERS: ATTEND Internal Medicine